=== PATIENT | female | born 1980 | race Caucasian/White ===

== ENCOUNTER → 2017-04-20 | Outpatient (CLI) | payer SELFPAY ==
[~2017-04-20] MED LIST: ALBU90OI INH; AMOX500 PO; BCPS; CLAR500 PO; HYDCOR2.5C PR; HYDGUAL120 PO; PENVK500; Percocet 5-3251 EACH PO
[2017-04-22 11:21] LABS: HPV Genotype 16 Not Detected (NOTDET); HPV Genotype 18 Not Detected (NOTDET)
[2017-04-30 14:23] LABS: HPV High Risk Other Detected (NOTDET)
== END ==
LOC: LAB 14:09
PROVIDERS: Registered Nurse Community Health
DX: Z09 Encounter for follow-up examination after completed treatment for conditions other than malignant neoplasm (principal); Z86.19 Personal history of other infectious and parasitic diseases
CPT/HCPCS: 87624; G0123

== ENCOUNTER → 2018-05-23 | Outpatient (CLI) | payer SELFPAY ==
[2018-05-25 15:07] LABS: HPV 16 Negative (Negative); HPV 18 Negative (Negative); HPV OTHER HR TYPES Positive (Negative)
== END ==
LOC: LAB 13:59 → LAB SHORT 13:59
PROVIDERS: Registered Nurse Community Health
DX: Z01.419 Encounter for gynecological examination (general) (routine) without abnormal findings (principal)
CPT/HCPCS: 87624; 87625; G0123

== ENCOUNTER 2018-08-14 13:39 | Emergency (ER) | payer MEDICAID ==
[~2018-08-14] VITALS: Ht 152.4 cm; Wt 68.0 kg
[2018-08-14] MEDS ORDERED: Amoxicillin500 MG PO (14:35)
[2018-08-14] MEDS ORDERED: PSEU120ER PO (14:35)
[2018-08-14] MEDS ORDERED: ALBU90OI INH (14:35)
== END 2018-08-14 14:40 | disposition home or self-care (01) ==
LOC: ER 13:39
DX: H66.93 Otitis media, unspecified, bilateral (principal); J45.909 Unspecified asthma, uncomplicated
CPT/HCPCS: 99282

== ENCOUNTER → 2021-12-04 | Outpatient (CLI) | payer OTHER ==
[~2021-12-04] MED LIST changes: +Amoxicillin500 MG PO; +PSEU120ER PO
[2021-12-05 15:11] LABS: HPV 16 Negative (Negative); HPV 18 Negative (Negative); HPV OTHER HR TYPES Positive (Negative)
== END | disposition home or self-care (01) ==
LOC: LAB SHORT 14:08 → LAB 14:08
PROVIDERS: Registered Nurse Community Health
DX: Z12.4 Encounter for screening for malignant neoplasm of cervix (principal)
CPT/HCPCS: 87624; G0123

== ENCOUNTER → 2022-12-10 | Outpatient (CLI) | payer OTHER ==
[2022-12-14 13:09] LABS: HPV 16 Negative (Negative); HPV 18 Negative (Negative); HPV OTHER HR TYPES Positive (Negative)
== END | disposition home or self-care (01) ==
LOC: LAB SHORT 17:53 → LAB 17:53
PROVIDERS: Registered Nurse Community Health
DX: Z12.4 Encounter for screening for malignant neoplasm of cervix (principal)
CPT/HCPCS: 87624; G0145